=== PATIENT | female | born 1970 ===

== ENCOUNTER 2022-07-27 09:26 | Outpatient (CLI) | payer OTHER | END 2022-07-27 09:52 | disposition home or self-care (01) | LOC: MRI 09:26 | PROVIDERS: ATTEND Specialist | DX: K80.10 Calculus of gallbladder with chronic cholecystitis without obstruction (principal) | CPT/HCPCS: 74181 ==

== ENCOUNTER 2022-08-11 05:02 | Day surgery (SDC) | payer OTHER ==
[~2022-08-11] VITALS: Ht 167.6 cm; Wt 74.8 kg
[~2022-08-11 05:02] MED LIST: PROTONIX20 MG PO
== END 2022-08-11 15:10 | disposition home or self-care (01) ==
LOC: CIR.AMB 05:02
PROVIDERS: ATTEND Specialist
DX: K80.10 Calculus of gallbladder with chronic cholecystitis without obstruction (principal); K21.9 Gastro-esophageal reflux disease without esophagitis; Z88.6 Allergy status to analgesic agent; Z91.013 Allergy to seafood; Z20.822 Contact with and (suspected) exposure to COVID-19; F17.210 Nicotine dependence, cigarettes, uncomplicated